=== PATIENT | female | born 1960 | race Caucasian/White ===

== ENCOUNTER 2021-07-23 12:45 | Observation (INO) ==
[2021-07-23 16:05] LABS: Basophils % 0.1 % (0.0-0.8); Eosinophils # 0.1 10*3/uL (0.0-0.87); Eosinophils % 0.8 % (0.00-10.9); Hematocrit 44.2 VOL% (35.7-47.0); Hemoglobin 14.9 GM/DL (12.0-16.0); Immature Granulocytes % 0.4 %; Immature Granulocytes Absolute 0.04 #; Lymphocytes # 1.6 10*3/uL (1.4-4.0); Lymphocytes % 14.1 % (21.3-54.2); Mean Corpuscular HGB Conc 33.7 GM/DL (32-36); Mean Corpuscular Volume 89.7 FL (87-102); Mean Platelet Volume 8.4 FL (9.6-12.0); Monocytes % 9.4 % (1.7-12.7); Neutrophils % 75.2 % (38.7-73.9); Platelet Count 272 T/CUMM (130-400); Red Blood Count 4.93 MC/CUMM (3.8-5.5); Red Cell Distribution Width 13.2 % (9.3-17.3)
[2021-07-23 16:28] LABS: Bilirubin,Total 0.8 MG/DL (0.20-1.00); Calcium 9.5 MG/DL (8.5-10.1); Osmolality,Calculated 266.4 MOS/KG (273-304); Potassium 3.4 MMOL/L (3.5-5.1); Total Protein 7.6 G/DL (6.4-8.2)
[2021-07-23] MEDS ORDERED: SODIUM CHLORIDE 0.9% 1,000 ML IV STA (17:25)
[2021-07-23] MEDS ORDERED: ONDANSETRON 4 MG/2 ML VIAL IV STA (17:25)
[2021-07-23] MEDS ORDERED: metroNIDAZOLE INJ 500 MG/100 ML PREMIX IV ONE (18:57)
[2021-07-23] MEDS ORDERED: ONDANSETRON 4 MG/2 ML VIAL IV PRN (19:51)
[2021-07-23] MEDS ORDERED: ACETAMINOPHEN 325 MG TABLET PO PRN (19:51)
[2021-07-23] MEDS ORDERED: FLUTICASONE 50 MCG NASAL SPRAY 16 GM BOTTLE BOTH NARES PRN (20:04)
[2021-07-23] MEDS ORDERED: oxyCODONE/ACETAMINOPHEN 5-325 MG TABLET PO PRN (20:10)
[2021-07-23] MEDS ORDERED: LIDOCAINE 5% PATCH TRANSDERM PRN (20:13)
[2021-07-23] MEDS: DOCUSATE SODIUM 100 MG CAPSULE PO SCH (20:59)
[2021-07-23] MEDS: CIPROFLOXACIN INJ 400 MG/200 ML PREMIX IV SCH (20:59)
[2021-07-23] MEDS: MONTELUKAST 10 MG TABLET PO SCH (20:59)
[2021-07-23] MEDS: SODIUM CHLORIDE 0.9% 1,000 ML IV SCH (20:59)
[2021-07-23] MEDS: TRAMADOL ACETAMINOPHEN PO SCH (21:00)
[2021-07-23] MEDS: ROSUVASTATIN 10 MG TABLET PO SCH (21:02)
[2021-07-24] MEDS: metroNIDAZOLE INJ 500 MG/100 ML PREMIX IV SCH ×3 (04:24→20:42)
[2021-07-24] MEDS: SODIUM CHLORIDE 0.9% 1,000 ML IV SCH ×2 (04:24→16:15)
[2021-07-24 04:58] LABS: Basophils % 0.3 % (0.0-0.8); Eosinophils # 0.2 10*3/uL (0.0-0.87); Eosinophils % 2.3 % (0.00-10.9); Hematocrit 39.4 VOL% (35.7-47.0); Hemoglobin 13.1 GM/DL (12.0-16.0); Immature Granulocytes % 0.4 %; Immature Granulocytes Absolute 0.04 #; Lymphocytes % 20.5 % (21.3-54.2); Mean Corpuscular HGB Conc 33.2 GM/DL (32-36); Mean Corpuscular Volume 92.5 FL (87-102); Mean Platelet Volume 8.6 FL (9.6-12.0); Neutrophils % 66.5 % (38.7-73.9); Platelet Count 207 T/CUMM (130-400); Red Blood Count 4.26 MC/CUMM (3.8-5.5); Red Cell Distribution Width 13.2 % (9.3-17.3); White Blood Count 9.8 T/CUMM (4-12)
[2021-07-24 05:07] LABS: Albumin 3.2 G/DL (3.4-5.0); Bilirubin,Total 0.7 MG/DL (0.20-1.00); Calcium 8.6 MG/DL (8.5-10.1); Osmolality,Calculated 275.5 MOS/KG (273-304); Potassium 3.5 MMOL/L (3.5-5.1); Total Protein 6.2 G/DL (6.4-8.2)
[2021-07-24] MEDS ORDERED: PANTOPRAZOLE 40 MG TABLET PO SCH (06:30)
[2021-07-24] MEDS: CIPROFLOXACIN INJ 400 MG/200 ML PREMIX IV SCH ×2 (08:51→21:50)
[2021-07-24] MEDS: SERTRALINE 50 MG TABLET PO SCH (08:52)
[2021-07-24] MEDS: METOPROLOL SUCCINATE XL 25 MG TABLET PO SCH (08:52)
[2021-07-24] MEDS: PANTOPRAZOLE 40 MG TABLET PO SCH (08:52)
[2021-07-24] MEDS: LOSARTAN 50 MG TABLET PO SCH (08:52)
[2021-07-24] MEDS: DOCUSATE SODIUM 100 MG CAPSULE PO SCH ×2 (08:53→20:43)
[2021-07-24] MEDS: TRAMADOL ACETAMINOPHEN PO SCH ×2 (09:45→21:27)
[2021-07-24] MEDS: ROSUVASTATIN 10 MG TABLET PO SCH (20:43)
[2021-07-24] MEDS: MONTELUKAST 10 MG TABLET PO SCH (20:43)
[2021-07-25] MEDS: SODIUM CHLORIDE 0.9% 1,000 ML IV SCH (02:39)
[2021-07-25] MEDS: metroNIDAZOLE INJ 500 MG/100 ML PREMIX IV SCH (04:56)
[2021-07-25] MEDS: PANTOPRAZOLE 40 MG TABLET PO SCH (06:17)
[2021-07-25 08:07] VITALS: BP 116/67
[2021-07-25] MEDS: SERTRALINE 50 MG TABLET PO SCH (08:59)
[2021-07-25] MEDS: DOCUSATE SODIUM 100 MG CAPSULE PO SCH (08:59)
[2021-07-25] MEDS: METOPROLOL SUCCINATE XL 25 MG TABLET PO SCH (08:59)
[2021-07-25] MEDS: LOSARTAN 50 MG TABLET PO SCH (08:59)
[2021-07-25] MEDS: CIPROFLOXACIN INJ 400 MG/200 ML PREMIX IV SCH (08:59)
[2021-07-25] MEDS ORDERED: ESTRADIOL 0.1 MG/24 HR TRANSDERM SCH (09:00)
[2021-07-25 09:20] LABS: Basophils % 0.5 % (0.0-0.8); Eosinophils # 0.2 10*3/uL (0.0-0.87); Eosinophils % 3.3 % (0.00-10.9); Hematocrit 33.7 VOL% (35.7-47.0); Hemoglobin 11.1 GM/DL (12.0-16.0); Immature Granulocytes % 0.2 %; Immature Granulocytes Absolute 0.01 #; Lymphocytes # 1.3 10*3/uL (1.4-4.0); Lymphocytes % 22.7 % (21.3-54.2); Mean Corpuscular HGB Conc 32.9 GM/DL (32-36); Mean Corpuscular Volume 92.8 FL (87-102); Mean Platelet Volume 8.4 FL (9.6-12.0); Monocytes # 0.5 10*3/uL (0.11-0.8); Neutrophils % 65.3 % (38.7-73.9); Platelet Count 162 T/CUMM (130-400); Red Blood Count 3.63 MC/CUMM (3.8-5.5); Red Cell Distribution Width 12.9 % (9.3-17.3); White Blood Count 5.8 T/CUMM (4-12)
[2021-07-25] MEDS: TRAMADOL ACETAMINOPHEN PO SCH (10:11)
== END 2021-07-25 11:45 | disposition home or self-care (01) ==
LOC: N.ED 12:45 → N.EDINP 12:45 → N.3E 19:30
PROVIDERS: ADMIT Family Medicine; ATTEND Family Medicine